=== PATIENT | male | born 1980 | race African-American/Black ===

== ENCOUNTER 2019-06-07 08:19 | Emergency (ER) | payer OTHER | END 2019-06-07 10:01 | disposition home or self-care (01) | LOC: E/R 08:19 | DX: S63.502A Unspecified sprain of left wrist, initial encounter (principal); F19.920 Other psychoactive substance use, unspecified with intoxication, uncomplicated; X58.XXXA Exposure to other specified factors, initial encounter; Y92.9 Unspecified place or not applicable | CPT/HCPCS: 73110; 73110-LT; 99283-25 ==